=== PATIENT | male | born 1995 | race Hispanic/Latino ===

== ENCOUNTER 2022-03-17 18:58 | Emergency (ER) | payer OTHER ==
[~2022-03-17] VITALS: Ht 172.7 cm; Wt 88.5 kg
[2022-03-17] MEDS ORDERED: HYDROCODONE/APAP 5MG-325MG TAB PO ONE (19:15)
[2022-03-17] MEDS ORDERED: HYDROCODONE/APAP 10MG-325MG TAB PO ONE (19:15)
[2022-03-17] MEDS ORDERED: HYDROCODONE/APAP 10MG-325MG TAB ONE (19:25)
[2022-03-17] MEDS ORDERED: NAPROSYN500 MG PO (19:35)
[2022-03-17 20:57] VITALS: BP 128/78
== END 2022-03-17 20:54 | disposition home or self-care (01) ==
LOC: ER 19:04
DX: R07.81 Pleurodynia (principal); R05.9 Cough, unspecified; W22.09XA Striking against other stationary object, initial encounter; Y93.44 Activity, trampolining; Y92.89 Other specified places as the place of occurrence of the external cause
CPT/HCPCS: 71101; 99283